=== PATIENT | female | born 1990 ===

== ENCOUNTER 2019-01-04 12:57 | Emergency (ER) | payer MEDICAID ==
[2019-01-04 13:55] VITALS: BP 117/63; PULSE 93; RESP 17; TEMP 98.6; O2SAT 97
[2019-01-04 16:07] LABS: BASO % 0.4 % (0.0-2.0); EOS # 0.1 K/uL (0.0-0.7); EOS % 1.7 % (0.0-4.0); LYMPH # 2.3 K/uL (1.0-4.3); LYMPH % 27.7 % (20.0-40.0); MEAN CELL VOLUME 91.3 fl (81.0-99.0); MEAN CORPUSCULAR HEMOGLOBIN 31.3 pg (27.0-31.0); MEAN CORPUSCULAR HGB CONC 34.2 g/dL (33.0-37.0); MEAN PLATELET VOLUME 7.9 fl (7.2-11.7); MONO # 0.7 K/uL (0.0-0.8); MONO % 8.7 % (0.0-10.0); NEUT # 5.1 K/uL (1.8-7.0); NEUT % 61.5 % (50.0-75.0); RBC 3.85 Mil/uL (3.80-5.20); RED CELL DISTRIBUTION WIDTH 12.5 % (11.5-14.5); WHITE BLOOD COUNT 8.2 K/uL (4.8-10.8)
--- NOTE | 2019-01-04 16:15 | ED PDOC ---
HPI: Abdomen Time Seen by Provider: 01/04/19 13:55 Chief Complaint (Nursing): GI Problem History/Exam Limitations: no limitations Outside of [place] travel?: No Current Symptoms Are (Timing): Better Quality Of Discomfort: Dull Associated Symptoms: Constipation. denies: Fever, Chills, Nausea, Urinary Symptoms Last Bowel Movement: Days Ago (5) Additional Complaint(s): Pt. is a healthy 28 y/o Female who reports feeling constipated x [address] normal BM was about 5 d. ago, now reports having harder stool. She further reports she is , possibly 12 weeks, however her lmp was not normal so she was not sure. Pt. denies any vaginal bleeding. Pt. is new to [place] and is in the process of established care, she has had no labs/US yet for this . Past Medical History Vital Signs: Last Vital Signs Temp 98.6 F 01/04/19 13:54 Pulse 93 H 01/04/19 13:54 Resp 17 01/04/19 13:54 BP 117/63 01/04/19 13:54 Pulse Ox 97 01/04/19 13:54 Primary Care Provider: FAMILY PROVIDER,NO - Surgical History Surgical History: Cholecystectomy - Family History Family History: States: Unknown Family Hx - Allergies Allergies/Adverse Reactions: Allergies Allergy/AdvReac Type Severity Reaction Status Date / Time sulfamethoxazole Allergy RASH Verified 01/04/19 15:38 [From Bactrim] trimethoprim [From Bactrim] Allergy RASH Verified 01/04/19 15:38 Review of Systems Constitutional: Negative for: Fever, Chills Gastrointestinal: Positive for: Constipation. Negative for: Vomiting, Abdominal Pain Genitourinary Female: Negative for: Dysuria, Vaginal Discharge, Vaginal Bleeding Physical Exam - Reviewed Vital Signs Reviewed: Yes - Physical Exam Appears: Positive for: Well, Non-toxic Head Exam: Positive for: ATRAUMATIC Skin: Positive for: Normal Color, Warm, Dry Cardiovascular/Chest: Positive for: Regular Rate, Rhythm Respiratory: Positive for: Normal Breath Sounds Gastrointestinal/Abdominal: Positive for: Soft, Tenderness (mild suprapubic tenderness). Negative for: Rebound Back: Positive for: Normal Inspection Neurological/Psych: Positive for: Awake, Alert, Normal Tone - Laboratory Results Result Diagrams: 01/04/19 15:00 01/04/19 15:00 - ECG O2 Sat by Pulse Oximetry: 97 Medical Decision Making Medical Decision Making: IV access established cbc cmp beta hcg quant type and screen TVUS ordered. Serial abdominal exams, abd. is soft/nt, tolerating po, no distress. Results including US dissussed with pt. and stressed the importance of close care. Disposition - Clinical Impression Clinical Impression: , Abdominal pain - Patient ED Disposition Is Patient to be Admitted: No - Disposition [facility] Disposition: Routine/Home Disposition Time: 18:22 Condition: STABLE Additional Instructions: continue vitamins. increase fiber and fluids. Instructions: - The Fourth Month, Constipation, Adult (DC) Forms: Floored (Indonesian)
[2019-01-04 16:17] LABS: SQUAMOUS EPITHIAL 17 /hpf (0-5); URINE BACTERIA RARE (<OCC); URINE BILIRUBIN NEGATIVE (NEGATIVE); URINE BLOOD NEGATIVE (NEGATIVE); URINE CLARITY CLOUDY (Clear); URINE COLOR YELLOW (YELLOW); URINE GLUCOSE (UA) NEG (NEGATIVE); URINE LEUKOCYTE ESTERASE TRACE Leu/uL (Negative); URINE PROTEIN NEGATIVE (NEGATIVE); URINE UROBILINOGEN 0.2-1.0 mg/dL (0.2-1.0)
[2019-01-04 16:23] LABS: ALB/GLOB RATIO 1.3 (1.0-2.1); ALBUMIN 4.2 g/dL (3.5-5.0); ALT/SGPT 68 U/L (9-52); AST/SGOT 60 U/L (14-36); BLOOD UREA NITROGEN 10 mg/dl (7-17); CALCIUM 9.1 mg/dL (8.4-10.2); GFR NON-AFRICAN AMERICAN > 60
--- NOTE | 2019-01-04 18:01 | US ---
Date of service: 01/04/2019 Indication: preg, abd. pain Comparison: None available Technique: Transabdominal pelvic ultrasound Findings: Fetus has a composite sonographic age of 14 weeks 0 days. This calculation is based on the biparietal diameter, head circumference, abdominal circumference, and femur length. There is heart motion which measured 150 BPM. Bilateral ovaries are not identified. Cervix length measures approximately 3.3 cm. Impression: Live single intrauterine with estimated gestational age 14 weeks 0 days. heart rate 150 bpm. Advise an anomaly screen at 16-18 weeks gestational age
== END 2019-01-04 18:41 | disposition home or self-care (01) ==
LOC: H.ER 12:57
DX: O26.92 Pregnancy related conditions, unspecified, second trimester (principal); R10.2 Pelvic and perineal pain; Z3A.14 14 weeks gestation of pregnancy; Z88.1 Allergy status to other antibiotic agents; Z88.2 Allergy status to sulfonamides